=== PATIENT | female | born 1995 | race Two or more races ===

== ENCOUNTER 2025-04-14 11:30 | Outpatient (CLI) | payer MEDICAID, SELFPAY ==
[2025-04-14 11:31] VITALS: BP 95/51; PULSE 71; RESP 18; RESP 98; TEMP 36.7
[2025-04-14 11:47] VITALS: BP 95/51; PULSE 71
[2025-04-14 11:55] VITALS: BMI 34.4
[2025-04-14 12:11] VITALS: BP 94/57; PULSE 76
== END 2025-04-14 12:20 | disposition home or self-care (01) ==
LOC: S4S1 11:31 → S4SX 11:32
PROVIDERS: Referring Provider Specialist; Visit Provider Specialist
DX: Z34.90 Encounter for supervision of normal pregnancy, unspecified, unspecified trimester (principal); Z36.89 Encounter for other specified antenatal screening; Z3A.00 Weeks of gestation of pregnancy not specified
CPT/HCPCS: 59025

== ENCOUNTER 2025-04-30 19:13 | Observation (INO) | payer MEDICAID, SELFPAY ==
[2025-04-30] VITALS (14 sets, daily range): BP systolic 119; BP diastolic 80; PULSE 81–111; RESP 18–99; TEMP 37; O2SAT 98–100; BMI 38.5
== END 2025-04-30 20:33 | disposition home or self-care (01) ==
LOC: S4SX 19:22
PROVIDERS: Admitting Provider Specialist; Visit Provider Specialist
DX: Z34.83 Encounter for supervision of other normal pregnancy, third trimester (principal); Z3A.39 39 weeks gestation of pregnancy
CPT/HCPCS: 59025; 59899

== ENCOUNTER 2025-05-01 19:57 | Inpatient (IN) | payer MEDICAID, SELFPAY ==
--- NOTE | 2025-04-28 08:03 | ESHP_ITS ---
RE: LORI JIMENEZ : 1995 DATE OF ADMISSION: 04/30/2025 This is a 30-year-old 5, para 4 with due date of 05/04 with intrauterine at 39 weeks 3 days who presents for induction of labor for gestational diabetes mellitus class A2 well controlled. The patient denies any leaking or bleeding. She reports normal movement. She has occasional contractions. MEDICATIONS: 1. multivitamin 1 p.o. daily. 2. Aspirin 81 mg 1 p.o. daily. 3. Humulin N 30 units before breakfast, 15 units before bedtime. 4. Humalog 20 units before breakfast and 20 units before dinner. PAST MEDICAL HISTORY: Gestational diabetes mellitus class A2. Rubella nonimmune. Group B strep colonization. SOCIAL HISTORY: She denies any alcohol, drug use or smoking. OBSTETRIC HISTORY: Four previous full-term normal vaginal deliveries without complication. PAST SURGICAL HISTORY: Denies. REVIEW OF SYSTEMS: She denies any chest pain, palpitations, cough, fever, shortness of breath or lower extremity pain. PHYSICAL EXAMINATION: VITAL SIGNS: Blood pressure 115/63, heart rate 88, respirations 18, temperature is 98.6. HEENT: Oropharynx and sclerae are clear. LUNGS: Clear to auscultation bilaterally. HEART: Regular rate and rhythm. ABDOMEN: Gravid, term size, consistent with estimated weight 9 pounds. PELVIC: See RN notes. EXTREMITIES: Nontender. SKIN: No gross rashes or lesion. NEUROLOGIC: No focal deficit. ASSESSMENT AND PLAN: Intrauterine at 39 weeks and 3 days, suspected macrosomia, GDMA2, induction of labor, anticipate spontaneous vaginal delivery. Informed consent was obtained. The patient is made aware of the risk, complication, alternative and benefits of the proposed procedure. She is aware of the risk of operative vaginal delivery, delivery and agrees with these modes of delivery if indicated. DT: 08:31:07 TT: 08:55:00 Ref: [id number] - TID: [id number] [facility]PITAL[facility]remias
--- NOTE | 2025-04-28 17:11 | PC.NURSE ---
pt phoned regarding her valentino iol informed pt we are unable to bring her in for her iol at this time but the md wants her to come in for nst today, pt states she does not have childbirth educator at this time, if she is able to get childbirth educator she will come for NST. pt denies labor s/s reported pos movement.
[2025-05-01 19:47] VITALS: BMI 39.5
[2025-05-01 19:49] VITALS: RESP 16
[2025-05-01 20:30] VITALS: BP 121/55; PULSE 76
[2025-05-01] MEDS: RINGERS LACTATED 1000 ML 1,000 ML 125 ML IV (20:30)
--- NOTE | 2025-05-01 21:03 | XR_ITS ---
EXAMINATION: age Limited TECHNIQUE: Limited transabdominal sonographic images pelvis Date and time: May 01, 2025, 0938 hours INDICATIONS: Labor evaluation, unknown presentation FINDINGS: Viable intrauterine gestation in cephalic presentation spine maternal right Cardiac motion 148 bpm IMPRESSION: Viable intrauterine gestation in cephalic presentation
--- NOTE | 2025-05-01 21:11 | PD.LDHP ---
Documentation for date of: 05/01/25 OB Labor/Induct. HPI History of Present Illness Comments: RE: LORI JIMENEZ : 1995 DATE OF ADMISSION: 05/01/2025 This is a 30-year-old 5, para 4 with due date of 05/04 with intrauterine at 39 weeks 4 days who presents for induction of labor for gestational diabetes mellitus class A2 well controlled. The patient denies any leaking or bleeding. She reports normal movement. She has occasional contractions. MEDICATIONS: 1. multivitamin 1 p.o. daily. 2. Aspirin 81 mg 1 p.o. daily. 3. Humulin N 30 units before breakfast, 15 units before bedtime. 4. Humalog 20 units before breakfast and 20 units before dinner. PAST MEDICAL HISTORY: Gestational diabetes mellitus class A2. Rubella nonimmune. Group B strep colonization. SOCIAL HISTORY: She denies any alcohol, drug use or smoking. OBSTETRIC HISTORY: Four previous full-term normal vaginal deliveries without complication. PAST SURGICAL HISTORY: Denies. REVIEW OF SYSTEMS: She denies any chest pain, palpitations, cough, fever, shortness of breath or lower extremity pain. PHYSICAL EXAMINATION: VITAL SIGNS: Blood pressure 115/63, heart rate 88, respirations 18, temperature is 98.6. HEENT: Oropharynx and sclerae are clear. LUNGS: Clear to auscultation bilaterally. HEART: Regular rate and rhythm. ABDOMEN: Gravid, term size, consistent with estimated weight 9 pounds. PELVIC: See RN notes. EXTREMITIES: Nontender. SKIN: No gross rashes or lesion. NEUROLOGIC: No focal deficit. ASSESSMENT AND PLAN: Intrauterine at 39 weeks and 4 days, GDMA2, induction of labor, anticipate spontaneous vaginal delivery. Informed consent was obtained. The patient is made aware of the risk, complication, alternative and benefits of the proposed procedure. She is aware of the risk of operative vaginal delivery, delivery and agrees with these modes of delivery if indicated. DT: 08:31:07 TT: 08:55:00 Ref: [id number] - TID: [id number] CC: NO PRIMARY/FAMILY,PHYSICIAN; ~ Dictated by:Heriberto Saba MD 04/27/25830 E-signed by:Heriberto Saba MD 04/30/252019 E-Signed by: E-Signed by: Labs Labs: Positive: Group Beta Strep, Negative: RPR, Hepatitis B, Rubella Titre, HIV, Chlamydia and Gonorrhea and Unknown: Herpes Type 1, Herpes Type 2 and Covid-19 Meds Home Medications and Allergies Home Medications ?Medication ?Instructions ?Recorded ?Confirmed ?Type ferrous sulfate 325 mg (65 mg 325 mg PO QDAY 01/06/23 04/30/25 History iron) tablet (iron) vits no.124-ferrous fum 1 tab PO QDAY 01/06/23 04/30/25 History 27 mg iron-folic acid 800 mcg tablet ( Vitamin) Allergies Allergy/AdvReac Type Severity Reaction Status Date / Time No Known Allergies Allergy Verified 04/30/25 20:03 OB Exam Physical Exam Vital signs: Pulse BP 76 121/55 L 05/01/25 20:30 05/01/25 20:30
[2025-05-01 22:49] LABS: Basophils # (Auto) 0.0 Thou/mm3 (0.0-0.2); Basophils % (Auto) 0 % (0-2.5); Eosinophils # (Auto) 0.2 Thou/mm3 (0.0-0.5); Eosinophils % (Auto) 2 % (0-10); Hematocrit 31.6 % (36.0-46.0); Hemoglobin 10.6 g/dL (12.0-16.0); Immature Granulocytes Auto 0.05 Thou/mm3 (0.00-0.00); Lymphocytes # (Auto) 2.5 Thou/mm3 (1.0-4.8); Lymphocytes % (Auto) 25 % (10-50); Mean Corpuscular HGB Conc 33.5 g/dl (31.0-37.0); Mean Corpuscular Hemoglobin 27.8 pg (25.0-35.0); Mean Corpuscular Volume 83 fL (80-100); Monocytes # (Auto) 0.7 Thou/mm3 (0.0-0.8); Monocytes % (Auto) 7 % (0-12); Neutrophils # (Auto) 6.5 Thou/mm3 (1.8-7.7); Neutrophils % (Auto) 65 % (37-80); Nucleated Red Blood Cell # 0.00 Thou/mm3 (0.00-0.00); Nucleated Red Blood Cell % 0 /100 WBC (0); Platelet Count 201 Thou/mm3 (140-440); RDW Standard Deviation 44.9 fL (36.4-46.3); Red Blood Count 3.81 Miln/mm3 (4.00-5.20); White Blood Count 10.0 Thou/mm3 (3.6-11.0)
[2025-05-01 23:10] LABS: Alanine Aminotransferase 9 U/L (10-49); Albumin, Serum 3.8 gm/dL (3.5-5.0); Albumin/Globulin Ratio 1.4 (1.2-2.2); Alkaline Phosphatase 130 U/L (46-116); Anion Gap 12 (7-16); Aspartate Amino Transferase 25 U/L (0-34); BUN/Creatinine Ratio 11 Ratio (12-20); Bilirubin,Total 0.3 mg/dL (0.3-1.2); Blood Urea Nitrogen 8 mg/dL (9-23); Calcium 9.2 mg/dL (8.3-10.6); Calcium (Corrected) 9.4 mg/dL (8.5-10.1); Carbon Dioxide 21.2 mMol/L (20.0-31.0); Chloride 106 mMol/L (98-107); Creatinine (Component) 0.7 mg/dL (0.6-1.3); Estimated Creatinine Clearance 142.1 mL/min (>60); Globulin 2.7 gm/dL (2.3-3.5); Glucose 86 mg/dL (74-106); Osmolality,Calculated 274 (275-295); Potassium 3.9 mMol/L (3.4-5.1); Sodium 139 mMol/L (136-145); Total Protein 6.5 gm/dL (5.7-8.2); eGFR > 60 See Note
[2025-05-02] VITALS (12 sets, daily range): BP systolic 97–114; BP diastolic 57–67; PULSE 70–87; RESP 16–20; TEMP 36.8–37.3; O2SAT 97–100
[2025-05-02 00:05] LABS: Syphilis Nonreactive (Nonreactive)
[2025-05-02] MEDS: RINGERS LACTATED 1000 ML 1,000 ML 125 ML IV (01:09)
[2025-05-02] MEDS: INSULIN NPH 1 UNIT/0.01 ML (PER UNIT) 15 UNIT SC (02:08)
[2025-05-02] MEDS: FAMOTIDINE INJ 10 MG/ML VIAL 2 ML 20 MG IV (03:47)
[2025-05-02] MEDS: ceFAZolin/D5W 2 GM IV 2 GM/100 ML BAG IV (03:47)
--- NOTE | 2025-05-02 04:07 | PD.LDPN ---
Documentation for date of: 05/02/25 OB Labor Progress Note Pelvic Exam Dilation (cm): 1.5 Effacement (%): 40 station: -3 Amniotic membrane status: Intact Contractions Monitor mode: External Contraction frequency: 1.5-3 Contraction intensity: Mild Status status: Category ll Comments: Recurrent episodes of minimal variability Accelerates with tactile stimulation but otherwise no spontaneous unprovoked accelerations Assessment and Plan Comments: delivery Informed consent was obtained. The patient was made aware of the risks and complications alternatives and benefits of the proposed procedure and she agrees. BS 108 .
--- NOTE | 2025-05-02 04:21 | ESOP_ITS ---
Operative Note - ASSISTANT ACCOUNT MANAGER Procedure Date of procedure: 05/02/25 Procedure Performed: Primary low-transverse section via Pfannenstiel skin incision Indication: Intrauterine at 39 weeks and 5 days Gestational diabetes mellitus class A2 Category 2 tracing remote from delivery Pre-Op diagnosis: Intrauterine at 39 weeks and 5 days Gestational diabetes mellitus class A2 Category 2 tracing remote from delivery Post-Op diagnosis: Intrauterine at 39 weeks and 5 days Gestational diabetes mellitus class A2 Category 2 tracing remote from delivery Nuchal cord Macrosomia Occiput Posterior Anesthesia type: Spinal Procedure description: After proper informed consent was obtained and the patient was made aware of the risks, complications, alternatives and benefits of the proposed procedure she was taken to the operating room where she underwent induction of spinal anesthesia. She was prepped and draped in the usual sterile fashion. A timeout was performed.? A Pfannenstiel skin incision was made with the scalpel and carried through to the underlying layer of fascia with the Bovie. The fascia was nicked in the midline incision and the incision was extended bilaterally with the Bovie. The inferior aspect of the fascial incision was grasped with Mello clamps elevated and the underlying rectus muscle dissected off with the Bovie. The superior aspect the fascial incision was grasped with Mello clamps elevated and the underlying rectus muscle dissected off with the Bovie. The rectus muscles were in the midline. The peritoneum was grasped between 2 Elliott clamps and entered sharply with the Metzenbaum scissors. The peritoneum was extended superiorly and inferiorly with good visualization of the bladder. The vesicouterine peritoneum was incised transversely and the bladder flap created digitally. A [place] blade was inserted. A low transverse incision was made in the uterus with a scapel and the incision was extended digitally. The female infant's head delivered and the mouth and nose were suctioned with the bulb suction. Nuchal cord reduced. The shoulder and body delivered atraumatically. The cord was clamped after 30 second delayed cord clamping and the cord was cut.? The infant was handed off to the waiting Pediatric staff, cord blood was collected for lab testing. The placenta was removed complete and intact. The uterus was exteriorized and cleared of all clots and debris. The uterine incision was closed with #1-0 chromic catgut suture in a running interlocking fashion. A second layer of the same suture was used to imbricate the first layer and obtain excellent hemostasis. The vesicouterine peritoneum was closed with 2- 0 chromic catgut suture in a running fashion. The firm uterus was returned to the abdomen. The gutters were cleared of all clots and debris. The peritoneum was closed with 0 chromic catgut suture in running fashion. The rectus muscle was closed with 0 chromic catgut suture. The fascia was closed with 0 Vicryl beginning at each angle and ending in the center in a running fashion. The subcutaneous tissue was irrigated with warmed normal saline solution and found to be hemostatic. The subcutaneous tissue was closed with 2-0 chromic catgut suture in a running fashion. The skin was closed with 4-0 Monocryl. A Dermabond Prineo dressing was applied and a sterile pressure dressing was applied.? She tolerated the procedure well. Counts were correct. I discussed with the patient the nature of her condition, intraoperative findings and expectation for recovery all? questions answered. Fluid amount (mL): 800 Urine output (mL): 500 Specimen: none Estimated blood loss (ml): 900 Findings: Live baby female Apgars 8 and 9 Weight 9'13 Clear amniotic fluid Placenta removed complete and intact Uterus ovaries and tubes grossly within normal limits Complications: none Surgical staff NIKKI Thao RNFA Dr Geiling Surgeon Operation Date: 05/02/25 04:30 <No data on this case meets the specified criteria> Diagnosis Discharge Diagnosis (1) delivery delivered: Status: Acute (2) Insulin controlled White classification A2 gestational diabetes mellitus (GDM): Status: Acute Problem List Completed Was Problem List Reviewed/Reconciled?: Yes
[2025-05-02 05:04] LABS: Amphetamine/Metham Scrn,Ur OB Negative (Negative); Benzoylecgonine Screen, Ur OB Negative (Negative); Opiate Screen,Urine OB Negative (Negative); THC Screen,Urine OB Negative (Negative)
--- NOTE | 2025-05-02 05:05 | OBDSUM_ITS ---
Data ([facility]) Data Hx Section: No : 5 Term: 4 : 0 Livin Abortions: Spontaneous & Theraputic: 0 Delivery Data ([facility]) Labor Data Initiation of labor: Induction Induction/Augmentation Agent: Cervidil ROM date: 05/02/25 Amniotic membrane rupture type: Artificial Amniotic fluid description: Clear Delivery Data EDC: 05/04/25 EDC calculated by:: LMP/early US confirmation Onset of labor date: 05/02/25 Onset of labor time: 04:38 Complete dilation date: 05/02/25 Complete dilation time: 04:38 Bon[place]el delivery date: 05/02/25 Bonesteel delivery time: 04:38 Gestational age (weeks): 39 Gestational age (days): 5 Placenta delivery date: 05/02/25 Placenta delivery time: 04:39 Stage 1 total time: Labor - Stage 1 Duration 0 minutes Delivered by: Geiling Delivery nurse: olga Ceja nurse: gwendolyn tineo Flight Data Technician at delivery: No Support person(s) at delivery: father of baby Other staff at delivery: see ORM Delivery Method Delivery method: Low Transverse Presentation: Vertex position: OP Anesthesia Type Anesthesia Type: Spinal Anesthesia type: Spinal Placenta Placenta delivery description: Manual Removal Cord blood sent to lab: Yes cord blood collection: Cord Blood Type Episiotomy Episiotomy description: None EBL Estimated blood loss (ml): 900 Umbilical Cord cord description: 3 Vessels, Nuchal Cord and Tight Additional Procedures None Complications Complications: None Bonesteel Data ([facility]) Bonesteel Data order: 1 Bonesteel's gender: Female weight (gms): 9 lb 12.616 oz Weight (pounds): 9 lbs and 12.6 ozs 1 minute: 8 5 minutes: 9 10 minutes: 9
[2025-05-02] MEDS: DOCUSATE SOD 100 MG CAPSULE PO (08:39)
--- NOTE | 2025-05-02 10:00 | PC.SS ---
DOWEL STICKER OPERATOR informed by bedside nurse to conduct contact at later date due to the patient delivering earlier in the morning via . patient services technician to follow up at later date.
--- NOTE | 2025-05-02 12:02 | PC.NURSE ---
AT THIS TIME NURSE CALLED LAB TO FOLLOW UP ON CBC ORDER FOR 1000. PER LAB WILL HAVE SOMEONE UP TO DRAW PT.
[2025-05-02 12:38] LABS: Basophils # (Auto) 0.0 Thou/mm3 (0.0-0.2); Basophils % (Auto) 0 % (0-2.5); Eosinophils # (Auto) 0.2 Thou/mm3 (0.0-0.5); Eosinophils % (Auto) 1 % (0-10); Hematocrit 28.0 % (36.0-46.0); Hemoglobin 9.5 g/dL (12.0-16.0); Immature Granulocytes Auto 0.07 Thou/mm3 (0.00-0.00); Lymphocytes # (Auto) 2.6 Thou/mm3 (1.0-4.8); Lymphocytes % (Auto) 19 % (10-50); Mean Corpuscular HGB Conc 33.9 g/dl (31.0-37.0); Mean Corpuscular Hemoglobin 28.0 pg (25.0-35.0); Mean Corpuscular Volume 83 fL (80-100); Monocytes # (Auto) 0.8 Thou/mm3 (0.0-0.8); Monocytes % (Auto) 6 % (0-12); Neutrophils # (Auto) 9.9 Thou/mm3 (1.8-7.7); Neutrophils % (Auto) 73 % (37-80); Nucleated Red Blood Cell # 0.00 Thou/mm3 (0.00-0.00); Nucleated Red Blood Cell % 0 /100 WBC (0); Platelet Count 153 Thou/mm3 (140-440); RDW Standard Deviation 45.3 fL (36.4-46.3); Red Blood Count 3.39 Miln/mm3 (4.00-5.20); White Blood Count 13.5 Thou/mm3 (3.6-11.0)
[2025-05-02] MEDS: ceFAZolin/D5W 1 GM IVPB 1 GM/50 ML BAG IV ×2 (12:39→19:32)
[2025-05-02] MEDS: OXYTOCIN in NS 20 units 20 UNIT/1,000 ML BAG 125 UNIT IV (12:39)
[2025-05-02] MEDS: HYDROcodone/APAP 5/325 TABLET 2 TAB PO ×2 (14:13→21:53)
[2025-05-02] MEDS: IBUPROFEN TAB 400 MG TABLET 800 MG PO (19:06)
--- NOTE | 2025-05-02 19:07 | PC.NURSE ---
POST CATHETER VOID 500ML.
[2025-05-03] VITALS: BP 97/62; PULSE 79; RESP 17; TEMP 36.7; O2SAT 96
[2025-05-03] MEDS: HYDROcodone/APAP 5/325 TABLET 1 TAB PO ×3 (04:20→13:49)
[2025-05-03] MEDS: ceFAZolin/D5W 1 GM IVPB 1 GM/50 ML BAG IV ×2 (04:20→12:02)
[2025-05-03 04:34] VITALS: BP 99/64; PULSE 75; RESP 18; TEMP 36.6; O2SAT 99
[2025-05-03 07:05] VITALS: BP 102/68; PULSE 85; RESP 18; TEMP 36.7; O2SAT 97
[2025-05-03] MEDS: IBUPROFEN TAB 400 MG TABLET 800 MG PO ×2 (07:27→16:11)
--- NOTE | 2025-05-03 07:44 | ESPR_ITS ---
RE: LORI JIMENEZ : 1995 DATE OF SERVICE: 05/03/2025 Postop day number 1. The patient denies any problem or complaint. She is voiding. She is ambulating. She is tolerating regular diet. She is passing flatus. She denies any excessive vaginal bleeding. She denies any dizziness or lightheadedness. She denies any chest pain, palpitations, shortness of breath or lower extremity pain. Blood pressure 99/64. Heart rate 75. Respirations 18. Temperature is 97.9. Pulse ox is 99% on room air. Lungs clear to auscultation bilaterally. Heart, regular rate and rhythm. Abdomen, incision clear and intact. Fundus is firm. Extremities nontender. Hemoglobin pre-delivery is 10.6, post-delivery is 9.5. ASSESSMENT: Postoperative day number 1, status post delivery. PLAN: Encourage ambulation. Discontinue IV. support. Possible discharge home tomorrow. DT: 07:25:11 TT: 07:42:00 Ref: [id number] - TID: [id number]
[2025-05-03] MEDS: ENOXAPARIN SOD INJ 40 MG/0.4 ML SYRINGE SC (08:51)
[2025-05-03] MEDS: DOCUSATE SOD 100 MG CAPSULE PO (08:51)
--- NOTE | 2025-05-03 11:07 | PC.CC ---
HOUSE DIRECTOR, Mere, met with patient [id number] to do initial assessment due to being late to care at 23-weeks of . HOUSE DIRECTOR introduced herself, role in the agency, reason for visit, and discussed limits of confidentiality. Patient appeared alert and oriented to self, time, place, and situation. Patient appears stated age. Patient made good eye contact. Patient?s attitude appeared pleasant and cooperative. Patient?s behavior appeared ordinary. Patient?s mood appears ordinary. No signs of delusions or hallucinations. This is 30-year-old, , single female who presented to deliver her daughter, Aidee. Patient confirmed her address and phone number. Patient resides in a house with her 4 children (ages: 10 y/o, 9, y/o, 7 y/o and 2 y/o), and boyfriend/father of the child, Keith May (phone: [phone]). Patient is independent with all daily activities; she denies any DME use. Patient is currently receiving SNAP and WIC. Patient declined any involvement with CWS. Patient declined any domestic violence at home. Patient denied any substance use. Patient denies any history or current mental health illnesses. She denies receiving any outpatient mental health services. Patient denies any history of suicide attempts, 5150 holds. Patient reported attending her first appointment at 23-weeks of due to having irregular menstrual periods and being unaware that she was . Patient reported attending all her OB appointments. When medically clear, patient will return home with boyfriendKeith who will provide support. Patient declined any community resources.
[2025-05-03 11:30] VITALS: BP 104/64; PULSE 87; RESP 18; TEMP 36.6; O2SAT 98
[2025-05-03 19:43] VITALS: BP 108/66; PULSE 82; RESP 17; TEMP 36.4; O2SAT 98
[2025-05-03] MEDS: ACETAMINOPHEN 325 MG TABLET 650 MG PO (22:05)
[2025-05-04 03:49] VITALS: BP 104/68; PULSE 86; RESP 19; TEMP 37.2; O2SAT 98
[2025-05-04] MEDS: HYDROcodone/APAP 5/325 TABLET 1 TAB PO ×2 (03:56→07:56)
--- NOTE | 2025-05-04 07:38 | ESPR_ITS ---
RE: LORI JIMENEZ : 1995 DATE OF SERVICE: 05/04/2025 Postop day number 2. The patient denies any problem or complaint. She is voiding. She is ambulating. She is tolerating regular diet. She is passing flatus. She denies any excessive vaginal bleeding. She denies any dizziness or lightheadedness. She denies any chest pain, palpitations, shortness of breath or lower extremity pain. Blood pressure 104/68, heart rate 86, respirations 19, temperature is 99.0. Pulse ox is 98% on room air. Lungs clear to auscultation bilaterally. Heart, regular rate and rhythm. Abdomen, incision clear and intact. Fundus is firm. Extremities nontender. ASSESSMENT: Postoperative day number 2, status post delivery. PLAN: Discharge home. Discharge instructions given. Follow up in the office in 1 week. DT: 07:15:14 TT: 07:37:00 Ref: [id number] - TID: [id number]
[2025-05-04 07:50] VITALS: BP 105/67; PULSE 78; RESP 17; TEMP 36.6; O2SAT 98
[2025-05-04] MEDS: DOCUSATE SOD 100 MG CAPSULE PO (07:56)
== END 2025-05-04 10:40 | disposition home or self-care (01) | DRG 540 ==
LOC: S4SX 05-02 03:42 → S4NX 05-02 04:12
PROVIDERS: Admitting Provider Specialist; Visit Provider Specialist
PROC: 10D00Z1 Extraction of Products of Conception, Low, Open Approach (ICD-10-PCS; CPT 59514; principal; 2025-05-02 04:15)
DX: O36.63X0 Maternal care for excessive fetal growth, third trimester, not applicable or unspecified (principal); Z37.0 Single live birth; Z3A.39 39 weeks gestation of pregnancy; O24.424 Gestational diabetes mellitus in childbirth, insulin controlled; O69.1XX0 Labor and delivery complicated by cord around neck, with compression, not applicable or unspecified; Z79.4 Long term (current) use of insulin
CPT/HCPCS: 36415; 76815; 80053; 80307; 85025; 86780; 86850; 86900; 86901; 94762; A4217; A4314; A4649; J0689; J1650; J1815; J2274; J2371; J2405; J2590; J3010; J3490; J7120; A9270; J2270